=== PATIENT | female | born 1985 | race Caucasian/White ===

== ENCOUNTER → 2016-06-10 | Outpatient (CLI) | payer OTHER ==
[~2016-06-10] MED LIST: ACET50TA PO; IBUP80TA PO; VITAPRTA PO
--- NOTE | 2016-06-10 09:23 | REP ---
Clinical: Splenomegaly by physical examination. Technique: Real time enriquez scale and color evaluation of the left upper quadrant using curved array transducer. Findings: The spleen is normal in contour, echogenicity, and overall appearance without focal splenic lesions identified. Splenic size is upper limits of normal measuring 11.1 x 5.7 x 10.4 cm (splenic index equals 650). The left kidney is normal in reniform shape and appearance without hydronephrosis, nephrolithiasis, cystic or mass lesion and measures 11.2 x 5.3 x 6.7 cm. Incidental note is made of a left pleural effusion. Impression: 1. Spleen is upper limits of normal in size but otherwise normal in appearance by ultrasound. 2. Normal left kidney. 3. Left pleural effusion noted. Signed by Talha Morrow MD 06/10/2016 09:15 A
== END ==
LOC: M RAD 08:31
PROVIDERS: ATTEND Internal Medicine Cardiovascular Disease
DX: J90 Pleural effusion, not elsewhere classified (principal)

== ENCOUNTER → 2016-07-04 | Outpatient (CLI) | payer OTHER ==
--- NOTE | 2016-07-04 11:03 | REP ---
Right upper quadrant sonography: History: Question gallbladder calculus. Comparison study: Abdominal CT study from March 20, 2016. Findings: Scanning through the right upper quadrant of the abdomen demonstrates a normal sized, thin-walled gallbladder without evidence of stone or polyp. Common bile duct is normal measuring 0.2 cm in greatest diameter. No focal liver lesion is seen. Liver size is normal. No pancreatic abnormality is observed. No right renal abnormality is seen. There is no evidence of ascites. The right kidney measures 12.2 x 4.9 x 3.8 pole to 80 and there are no cm. Impression: Negative right upper quadrant sonography. Signed by Josesito Espinosa MD 07/04/2016 08:12 A
== END ==
LOC: M RAD 07:31
PROVIDERS: ATTEND Family Medicine
DX: K80.20 Calculus of gallbladder without cholecystitis without obstruction (principal)

== ENCOUNTER → 2017-02-13 | Outpatient (REF) | payer OTHER | LOC: M SFHCLERA 13:56 | PROVIDERS: ATTEND Nurse Practitioner Family | DX: R30.0 Dysuria (principal) ==

== ENCOUNTER → 2017-04-07 | Outpatient (CLI) | payer OTHER ==
--- NOTE | 2017-04-07 18:32 | REP ---
PA and lateral chest: Comparison 04/28/2016. The lung hylton are clear. The cardiac size is normal The gale, mediastinum, and bony thorax are unremarkable. Impression: Negative PA and lateral chest. There is no interval change. Signed by Vincent Covarrubias MD 04/07/2017 06:23 P
== END ==
LOC: M LRY 17:54
PROVIDERS: ATTEND Nurse Practitioner Family
DX: R05 Cough (principal)
CPT/HCPCS: 71020; G0463